=== PATIENT | female | born 2000 | race Hispanic/Latino ===

== ENCOUNTER 2023-01-20 01:39 | Emergency (ER) | payer OTHER | END 2023-01-20 02:56 | disposition home or self-care (01) | LOC: ERS 01:39 | DX: S06.0XAA Concussion with loss of consciousness status unknown, initial encounter (principal); S01.01XA Laceration without foreign body of scalp, initial encounter; W01.10XA Fall on same level from slipping, tripping and stumbling with subsequent striking against unspecified object, initial encounter | CPT/HCPCS: 12001; 70450 ==

== ENCOUNTER 2023-01-27 16:33 | Emergency (ER) | payer OTHER | END 2023-01-27 16:58 | disposition home or self-care (01) | LOC: ERS 16:33 | DX: S01.01XD Laceration without foreign body of scalp, subsequent encounter (principal); X58.XXXD Exposure to other specified factors, subsequent encounter ==